=== PATIENT | female | born 1960 | race Caucasian/White ===

== ENCOUNTER 2023-09-03 14:23 | Observation (INO) | payer SELFPAY ==
[2023-09-03] MEDS ORDERED: AMLODIPINE 10 MG TAB ONE (15:01)
[2023-09-03] MEDS ORDERED: cloNIDine HCL 0.1 MG TAB ONE (15:01)
[2023-09-03 15:25] LABS: Absolute Lymphocytes (CBC) 2.9 K/uL (0.7-4.9); Hematocrit 42.1 % (36.0-45.0); Lymphocytes % 34.2 % (15.3-44.8); MCV 86.3 fL (80-100); MPV 8.7 fL (7.6-11.3); Platelets 283 thou/uL (152-406); RBC Red Blood Cell Count 4.88 M/uL (3.86-4.86)
[2023-09-03 15:31] LABS: Protime INR 1.07
[2023-09-03 15:51] LABS: Albumin 3.5 g/dL (3.4-5.0); Bilirubin Direct 0.1 mg/dL (0-0.2); Bilirubin Indirect, Calculated 0.2 mg/dL (0.2-0.8); Bilirubin Total 0.3 mg/dL (0.2-1.0); Magnesium 2.1 mg/dL (1.6-2.4); Potassium 3.5 mEq/L (3.5-5.1); Protein, Total 7.6 g/dL (6.4-8.2)
[2023-09-03 15:56] LABS: Troponin High Sensitivity 85.2 pg/mL (<58.9)
--- NOTE | 2023-09-03 15:56 | RAD REPORT ---
EXAM DESCRIPTION: Dilant Single View09/03/2023 3:02 pm CLINICAL HISTORY: Chest pain;SOB COMPARISON: CHEST PA AND LAT 2 VIEW dated 11/07/2009 TECHNIQUE: Portable AP view of the chest. FINDINGS: The lungs are clear. No pneumothorax or effusion. The cardiomediastinal contours are unre markable. IMPRESSION: No acute cardiopulmonary process.
--- NOTE | 2023-09-03 16:01 | RAD REPORT ---
EXAM DESCRIPTION: CT - Head Brain Wo Cont - 09/03/2023 2:55 pm CLINICAL HISTORY: DIZZINESS COMPARISON: No comparisons TECHNIQUE: Noncontrast head CT images were obtained without IV contrast. Multiplanar reformats were generated and reviewed. All CT scans are performed using dose optimization technique as appropriate and may include automated exposure control or mA/KV adjustment according to patient size. FINDINGS: No intracranial hemorrhage, mass, or edema. Midline structures are unremarkable. Normal ventricular caliber for age. Ray-white matter differentiation is preserved, without evidence of acute infarct. No abnormal extra- axial fluid collections. Mastoid air cells and visualized portions of the paranasal sinuses are clear. No acute bony findings. IMPRESSION: No evidence of an acute intracranial process.
[2023-09-03 16:39] LABS: Urine Bacteria None Seen /HPF (<20); Urine Bilirubin NEGATIVE (Negative); Urine Blood Negative (Negative); Urine Clarity Clear (Clear); Urine Color Light-Yellow (Yellow); Urine Glucose NEGATIVE (Negative); Urine Protein NEGATIVE (Negative); Urine RBC <5 /HPF (None Seen); Urine Urobilinogen Normal (Normal)
--- NOTE | 2023-09-03 18:14 | RAD REPORT ---
EXAM DESCRIPTION: CT - Angio Aorta For Dissection - 09/03/2023 5:30 pm CLINICAL HISTORY: chest pain COMPARISON: No comparisons TECHNIQUE: Thin axial CT images of the chest, abdomen, and pelvis were obtained during administratio n of iodinated contrast intravenously. Sagittal and coronal reconstructions as well as maximal intens ity projection reconstruction were generated and reviewed per an aortic angiography protocol. All CT scans are performed using dose optimization technique as appropriate and may include automated exposure control or mA/KV adjustment according to patient size. FINDINGS: Aorta is normal in diameter with no dissection or other acute aortic findings. Reconstruct ion images show no significant findings. Pulmonary arteries are normal as well. No mass or infiltrate in the lung parenchyma. No pleural thickening, pleural effusion or pneumothorax . No abnormal mediastinal or hilar mass or lymphadenopathy seen. No chest wall mass or abnormal axillar y lymphadenopathy. Celiac, SMA and renal arteries show no suspicious findings. Colonic diverticulosis. Segmental apparen t wall thickening along the sigmoid colon, favored to relate to nondistention. Solid abdominal viscera and bowel show no other significant findings. No mass or abnormal lymphadenop athy. IMPRESSION: No acute abnormalities on CT angiogram of the aorta. Colonic diverticulosis. Segmental apparent wall thickening along the sigmoid colon, favored to relate to nondistention.
[2023-09-03] MEDS ORDERED: ASPIRIN 81 MG CHEWABLE TABLET ONE (18:45)
[2023-09-03] MEDS ORDERED: ENOXAPARIN 60 MG/0.6 ML SQ ONE (18:45)
[2023-09-03] MEDS ORDERED: HYDRALAZINE HCL 20 MG/ML VIAL ONE (18:45)
--- NOTE | 2023-09-03 18:49 | EDPHYS ---
Physician Documentation [facility] Name: Catalina Franco Age: 62 yrs Sex: Female : 1960 Arrival Date: 09/03/2023 Time: 14:23 Bed 2 Private MD: ED Physician Ramana Dupont HPI: 09/03 14:40 This 62 yrs old Female presents to ER via Ambulatory with complaints of High Blood cp Pressure. 14:40 The patient has elevated blood pressure and discovered this at a physician's office, cp and sent to the emergency department for evaluation. 14:40 Onset: The symptoms/episode began/occurred 1 week(s) ago. cp 14:40 Associated signs and symptoms: Pertinent positives: chest pain, dizziness, shortness of cp breath with exertion. Severity of symptoms: At its worst the blood pressure was 230 mm Hg, in the emergency department the blood pressure is improved, 215 mm Hg. Historical: - Allergies: 14:35 No Known Allergies; ll1 - PMHx: 14:35 Hypertensive disorder; ll1 - Immunization history:: Adult Immunizations up to date. - Social history:: Smoking status: Patient denies any tobacco usage or history of. ROS: 14:45 Constitutional: Negative for body aches, chills, fever, poor PO intake, cp 14:45 Eyes: Negative for injury, pain, redness, and discharge, cp 14:45 ENT: Negative for drainage from ear(s), ear pain, sore throat, difficulty swallowing, difficulty handling secretions, 14:45 Cardiovascular: Positive for chest pain, Negative for edema, palpitations, 14:45 Respiratory: Positive for shortness of breath, on exertion. Negative for cough, wheezing, 14:45 Abdomen/GI: Negative for abdominal pain, vomiting, diarrhea, constipation, anorexia, 14:45 Back: Negative for pain at rest, pain with movement, 14:45 Neuro: Negative for altered mental status, headache, numbness, syncope, weakness, 14:45 All other systems are negative, Exam: 14:50 Constitutional: The patient appears in no acute distress, alert, awake, cp non-diaphoretic, non-toxic, well developed, well nourished, 14:50 Head/Face: Normocephalic, atraumatic. cp 14:50 Eyes: Periorbital structures: appear normal, Pupils: equal, round, and reactive to light and accomodation, Extraocular movements: intact throughout, Conjunctiva: normal, no exudate, no injection, Sclera: no appreciated abnormality, Lids and lashes: appear normal, bilaterally, 14:50 ENT: External ear(s): are unremarkable, Nose: is normal, Mouth: Lips: moist, Oral mucosa: pink and intact, moist, Posterior pharynx: Airway: no evidence of obstruction, patent, 14:50 Neck: ROM/movement: is normal, is supple, without pain, no range of motions limitations, no meningismus, no nuchal rigidity, 14:50 Chest/axilla: Inspection: normal, Palpation: is normal, no crepitus, no tenderness, 14:50 Cardiovascular: Rate: normal, Rhythm: regular, Edema: is not appreciated, JVD: is not appreciated, 14:50 Respiratory: the patient does not display signs of respiratory distress, Respirations: normal, no use of accessory muscles, no retractions, labored breathing, is not present, Breath sounds: are clear throughout, no decreased breath sounds, no stridor, no wheezing, 14:50 Abdomen/GI: Inspection: abdomen appears normal, Palpation: abdomen is soft and non-tender, in all quadrants, 14:50 Back: pain, is absent, ROM is normal, 14:50 Neuro: Orientation: to person, place \T\ time. Mentation: is normal, Motor: moves all fours, strength is normal, Sensation: is normal, 15:22 ECG was reviewed by the Attending Physician. cp Vital Signs: 14:35 BP 215 / 105; Pulse 63; Resp 17; Temp 97.8; Pulse Ox 100% ; Weight 58.51 kg; Height 5 ll1 ft. 0 in. ; Pain 0/10; 14:57 BP 212 / 88; Pulse 56; Resp 17; Pulse Ox 99% on R/A; rs5 15:30 BP 217 / 82; Pulse 55; Resp 14; Pulse Ox 97% on R/A; ld1 16:00 BP 173 / 89; Pulse 52; Resp 12; Pulse Ox 98% on R/A; ld1 16:01 BP 173 / 89; Pulse 53; Resp 17; Pulse Ox 99% on R/A; rs5 16:30 BP 162 / 80; Pulse 52; Resp 13; Pulse Ox 97% on R/A; ld1 17:00 BP 152 / 86; Pulse 52; Resp 17; Pulse Ox 97% on R/A; ld1 17:43 BP 197 / 80; Pulse 56; Resp 20; Pulse Ox 98% on R/A; ld1 18:53 BP 171 / 84; Pulse 56; Resp 18; Pulse Ox 99% on R/A; rs5 19:32 BP 161 / 73; Pulse 52; Resp 19; Pulse Ox 97% on R/A; Pain 0/10; tm6 20:18 BP 157 / 78; Pulse 55; Resp 19; Pulse Ox 98% on R/A; Pain 0/10; tm6 14:35 Body Mass Index 25.19 (58.51 kg, 152.4 cm) ll1 14:35 Pain Scale: Adult ll1 19:32 Pain Scale: Adult tm6 20:18 Pain Scale: Adult tm6 MDM: 14:28 Patient medically screened. 15:00 Differential diagnosis: hypertensive crisis, Malignant HTN, CVA, intracerebral cp hemorrhage, acute MA. 18:31 Management of patient was discussed with the following: Data Communications Technician: DR Oquendo, circuit rider, will consult and patient can be admitted to services of hospitalist. Care significantly affected by the following chronic conditions: Hypertension. 18:35 Data reviewed: vital signs, nurses notes, lab test result(s), EKG, radiologic studies, cp CT scan, plain films, and as a result, I will admit patient. 18:35 I considered the following discharge prescriptions or medication management in the emergency department Medications were administered in the Emergency Department. See MAR. Independent interpretation of the following test(s) in the Emergency Department EKG: See my EKG interpretation above. 09/03 14:36 Order name: Basic Metabolic Panel; Complete Time: 16:08 09/03 16:09 Interpretation: Normal except: GLUC 162; BUN 19; GFR 61. 09/03 14:36 Order name: CBC with Diff; Complete Time: 16:08 09/03 16:41 Interpretation: Normal except: RBC 4.88. 09/03 14:36 Order name: D-Dimer; Complete Time: 16:08 09/03 16:42 Interpretation: Abnormal: D-DIMER 616. 09/03 14:36 Order name: LFT's; Complete Time: 16:08 09/03 14:36 Order name: Magnesium; Complete Time: 16:08 09/03 14:36 Order name: NT PRO-BNP; Complete Time: 16:08 09/03 14:36 Order name: PT-INR; Complete Time: 16:08 09/03 14:36 Order name: Troponin HS; Complete Time: 16:08 09/03 16:42 Interpretation: Abnormal: Troponin HS 85.2. cp 09/03 14:37 Order name: Urinalysis W/Microscopic; Complete Time: 16:41 09/03 16:41 Interpretation: Reviewed. 09/03 19:16 Order name: Troponin High Sensitivity [facility] 09/03 19:26 Order name: Hemoglobin A1c [facility] 09/03 19:26 Order name: Thyroid Stimulating Hormone [facility] 09/03 14:36 Order name: XRAY Chest (1 view); Complete Time: 16:08 09/03 14:39 Order name: CT Head Brain wo Cont; Complete Time: 16:08 09/03 16:10 Order name: CT Aorta for Dissection; Complete Time: 18:16 09/03 14:36 Order name: EKG; Complete Time: 14:37 09/03 19:10 Order name: CONS Physician Consult [facility] 09/03 19:13 Order name: EKG Electrocardiogram [facility] 09/03 14:36 Order name: Cardiac monitoring; Complete Time: 15:23 09/03 14:36 Order name: EKG - Nurse/Tech; Complete Time: 15:23 09/03 14:36 Order name: IV Saline Lock; Complete Time: 15:23 09/03 14:36 Order name: Labs collected and sent; Complete Time: 15:23 09/03 14:36 Order name: O2 Per Protocol; Complete Time: 15:13 09/03 14:36 Order name: O2 Sat Monitoring; Complete Time: 15:13 cp EC:22 Rate is 49 beats/min. Rhythm is regular. [place] interval is normal. QRS interval is normal. cp QT interval is normal. T waves are Inverted in lead aVR. Interpreted by me. Reviewed by me. Administered Medications: 15:05 Drug: cloNIDine PO 0.2 mg PO once Route: PO; rs5 15:05 Drug: amLODIPine PO 10 mg PO once Route: PO; rs5 18:40 Drug: Aspirin PO Chewable Tablet 324 mg PO once; 81 mg tablets x 4 Route: PO; rs5 18:40 Drug: Enoxaparin Sub-Q 1 mg/kg Sub-Q once Route: Sub-Q; Site: left lower abdomen; rs5 18:59 Not Given (Physician Discretion): [id number] mg IVP once cp Disposition Summary: 09/03/23 18:49 Hospitalization Ordered Notes: Hospitalization Status: Inpatient Admission cp Provider: Calvin Alford cp Condition: Stable cp Problem: new cp Symptoms: have improved cp Bed/Room Type: Standard cp Location: Telemetry/MedSurg (observation)(09/03/23 19:38) rv1 Room Assignment: [facility](09/03/23 19:38) rv1 Diagnosis - Angina pectoris, unspecified cp - Hypertensive heart disease without heart failure cp Forms: - Medication Reconciliation Form cp - SBAR form cp - Leadership Thank You Letter cp Signatures: Dispatcher [employer] EDMS Erick Shirley PA PA cp Grace Vasquez RN RN Linda Morales RN RN ll1 Lindy Hammonds rv1 Wilfred Rodriguez RN RN rs5 Corrections: (The following items were deleted from the chart) 19:13 18:49 cp rv1 19:25 18:49 Telemetry/MedSurg (Inpatient) cp cg 19:25 19:13 428 rv1 cg 19:25 19:25 cg cg 19:38 19:25 [facility] ER HOLD cg rv1 19:38 19:25 ERHOLD- cg rv1 09/04 19:19 09/02 14:40 This 62 yrs old Female presents to ER via Ambulatory with complaints of cp High Blood Pressure. cp
--- NOTE | 2023-09-03 18:49 | ER ---
Nurse's Notes [facility] Name: Catalina Franco Age: 62 yrs Sex: Female : 1960 Arrival Date: 09/03/2023 Time: 14:23 Bed 2 Private MD: Diagnosis: Angina pectoris, unspecified;Hypertensive heart disease without heart failure Presentation: 09/03 14:35 Chief complaint: Patient states: Sent by PCP for elevated BP. 230's systolic. Int. CP, ll1 none now. + SOB with exertion. Coronavirus screen: Client denies travel out of the [place] in the last 14 days. At this time, the client does not indicate any symptoms associated with coronavirus-19. Ebola Screen: Patient denies travel to an Ebola-affected area in the 21 days before illness onset. Initial Sepsis Screen: Does the patient meet any 2 criteria? No. Patient's initial sepsis screen is negative. Does the patient have a suspected source of infection? No. Patient's initial sepsis screen is negative. Risk Assessment: Do you want to hurt yourself or someone else? Patient reports no desire to harm self or others. Onset of symptoms was August 20, 2023. 14:35 Method Of Arrival: Ambulatory ll1 14:35 Acuity: GRETA 2 ll1 Historical: - Allergies: 14:35 No Known Allergies; ll1 - PMHx: 14:35 Hypertensive disorder; ll1 - Immunization history:: Adult Immunizations up to date. - Social history:: Smoking status: Patient denies any tobacco usage or history of. Screenin:30 [facility] ED Fall Risk Assessment (Adult) History of falling in the last 3 months, rs5 including since admission No falls in past 3 months (0 pts) Confusion or Disorientation No (0 pts) Intoxicated or Sedated No (0 pts) Impaired Gait No (0 pts) Mobility Assist Device Used No (0 pt) Altered Elimination No (0 pt) Score/Fall Risk Level 0 - 2 = Low Risk Oriented to surroundings, Maintained a safe environment. [facility] ED Fall Risk Assessment (Adult) History of falling in the last 3 months, including since admission. Abuse screen: Denies threats or abuse. Nutritional screening: No deficits noted. Tuberculosis screening: No symptoms or risk factors identified. Assessment: 14:30 General: Appears in no apparent distress. comfortable, Behavior is calm, cooperative. rs5 Pain: Denies pain. Neuro: Level of Consciousness is awake, alert, obeys commands, Oriented to person, place, time, situation, Reports dizziness. Cardiovascular: Patient's skin is warm and dry. Rhythm is regular. Respiratory: Reports shortness of breath Respiratory effort is even, unlabored, Respiratory pattern is regular, symmetrical. GI: Abdomen is flat, non-distended. : No signs and/or symptoms were reported regarding the genitourinary system. EENT: No signs and/or symptoms were reported regarding the EENT system. Derm: Skin is intact, Skin is pink, warm \T\ dry. 14:30 Musculoskeletal: Range of motion: intact in all extremities. rs5 14:30 Reassessment: provider notified of elevated bp. rs5 15:35 Reassessment: No changes from previously documented assessment. rs5 16:42 Reassessment: Patient and/or family updated on plan of care and expected duration. Pain rs5 level reassessed. Patient is alert, oriented x 3, equal unlabored respirations, skin warm/dry/pink. Patient denies pain at this time. 16:42 Cardiovascular: Rhythm is regular. rs5 17:42 Reassessment: No changes from previously documented assessment. rs5 17:42 Reassessment: provider notified of elevated BP. rs5 17:52 Reassessment: provider notified of elevated bp . rs5 18:30 Reassessment: Patient and/or family updated on plan of care and expected duration. Pain rs5 level reassessed. Patient is alert, oriented x 3, equal unlabored respirations, skin warm/dry/pink. 20:01 Reassessment: report attempted. tm6 20:18 Reassessment: report attempted. tm6 20:42 Reassessment: report attempted. tm6 Vital Signs: 14:35 BP 215 / 105; Pulse 63; Resp 17; Temp 97.8; Pulse Ox 100% ; Weight 58.51 kg; Height 5 ll1 ft. 0 in. ; Pain 0/10; 14:57 BP 212 / 88; Pulse 56; Resp 17; Pulse Ox 99% on R/A; rs5 15:30 BP 217 / 82; Pulse 55; Resp 14; Pulse Ox 97% on R/A; ld1 16:00 BP 173 / 89; Pulse 52; Resp 12; Pulse Ox 98% on R/A; ld1 16:01 BP 173 / 89; Pulse 53; Resp 17; Pulse Ox 99% on R/A; rs5 16:30 BP 162 / 80; Pulse 52; Resp 13; Pulse Ox 97% on R/A; ld1 17:00 BP 152 / 86; Pulse 52; Resp 17; Pulse Ox 97% on R/A; ld1 17:43 BP 197 / 80; Pulse 56; Resp 20; Pulse Ox 98% on R/A; ld1 18:53 BP 171 / 84; Pulse 56; Resp 18; Pulse Ox 99% on R/A; rs5 19:32 BP 161 / 73; Pulse 52; Resp 19; Pulse Ox 97% on R/A; Pain 0/10; tm6 20:18 BP 157 / 78; Pulse 55; Resp 19; Pulse Ox 98% on R/A; Pain 0/10; tm6 14:35 Body Mass Index 25.19 (58.51 kg, 152.4 cm) ll1 14:35 Pain Scale: Adult ll1 19:32 Pain Scale: Adult tm6 20:18 Pain Scale: Adult tm6 ED Course: 14:24 Patient arrived in ED. rg4 14:26 Erick Shirley PA is PHCP. cp 14:26 Ramana Dupont MD is Attending Physician. cp 14:35 Arm band placed on. ll1 14:35 Patient has correct armband on for positive identification. Bed in low position. Call rs5 light in reach. Side rails up X2. 14:37 Triage completed. ll1 14:40 Inserted saline lock: 20 gauge in right antecubital area, using aseptic technique. rs5 Blood collected. 14:56 CT Head Brain wo Cont In Process Unspecified. EDMS 15:03 XRAY Chest (1 view) In Process Unspecified. EDMS 17:28 Wilfred Rodriguez, HUNTER is Primary Nurse. rs5 17:31 CT Aorta for Dissection In Process Unspecified. EDMS 17:43 No provider procedures requiring assistance completed. rs5 18:47 Calvin Alford MD is Hospitalizing Provider. cp 20:17 Provided Education on: need for admit. tm6 21:11 Patient admitted, IV remains in place. tm6 Administered Medications: 15:05 Drug: cloNIDine PO 0.2 mg PO once Route: PO; rs5 15:05 Drug: amLODIPine PO 10 mg PO once Route: PO; rs5 18:40 Drug: Aspirin PO Chewable Tablet 324 mg PO once; 81 mg tablets x 4 Route: PO; rs5 18:40 Drug: Enoxaparin Sub-Q 1 mg/kg Sub-Q once Route: Sub-Q; Site: left lower abdomen; rs5 18:59 Not Given (Physician Discretion): [id number] mg IVP once cp Medication: 15:05 VIS not applicable for this client. rs5 Outcome: 18:49 Decision to Hospitalize by Provider. cp 21:11 Admitted to tm6 21:11 Condition: stable 21:11 Admitted to Med/surg accompanied by tech, room 202, with chart, Report called to Michael jefferson RN 21:11 Instructed on the need for admit, 21:12 Patient left the ED. tm6 Signatures: Dispatcher [employer] EDMS Erick Shirley PA PA cp Garcia, Rubi rg4 Linda Morales, RN RN ll1 Vandana Bolden RN RN ld1 Wilfred Rodriguez RN RN rs5 Julianna Nagy RN RN tm6 Corrections: (The following items were deleted from the chart) 17:52 15:49 BP 217 / 82; Pulse 56bpm; Resp 15bpm; Pulse Ox 98% RA; ld1 rs5 17:52 17:43 BP 197 / 80; Pulse 61bpm; Resp 18bpm; Pulse Ox 99% RA; rs5 rs5 17:52 16:42 Reassessment: provider notified of elevated bp . rs5 rs5
[2023-09-03] MEDS ORDERED: cloNIDine HCL 0.1 MG TAB PO PRN (19:13)
--- NOTE | 2023-09-03 19:18 | P.HP ---
Certification for Inpatient Patient admitted to: Observation With expected LOS: <2 Midnights Practitioner: I am a practitioner with admitting privileges, knowledge of patient current condition, hospital course, and medical plan of care. Services: Services provided to patient in accordance with Admission requirements found in Title 42 Section 412.3 of the Code of Federal Regulations Patient History Date of Service: 09/03/23 Reason for admission: Elevated blood pressure non-STEMI History of Present Illness: Patient is 62 years of age has been having problems for the past week admitted to the hospital complaining of feeling dizzy very stressed out looking for her mother. Also has some weakness shortness of breath and it appeared in the hospital with a systolic over 220. Patient does take valsartan and has been compliant with her medication denies any chest pain. Shortness of breath right now patient has a history of sinus bradycardia Allergies No Known Allergies Allergy (Unverified 09/03/23 21:12) - Past Medical/Surgical History -: Hypertension Past Surgical History: Patient denies surgical history - Social History Smoking Status: Never smoker Review of Systems 10-point ROS is otherwise unremarkable Physical Examination - Vital Signs Blood Pressure: 212/88 Pulse: 56 Respirations: 17 Pulse Ox (%): 99 - Physical Exam General: Alert, In no apparent distress, Oriented x3 HEENT: Atraumatic Neck: Supple Respiratory: Clear to auscultation bilaterally Cardiovascular: Normal pulses, Regular rate/rhythm Gastrointestinal: Normal bowel sounds, Soft and benign Musculoskeletal: No clubbing, No swelling Integumentary: No rashes, No breakdown Neurological: Normal speech, Normal strength at 5/5 x4 extr, Cranial nerves 3-12 intact - Studies Laboratory Data (last 24 hrs) 09/03/23 09/03/23 09/03/23 15:10 15:10 15:10 WBC 8.40 Hgb 14.6 Hct 42.1 Plt Count 283 PT 11.7 INR 1.07 Sodium 138 Potassium 3.5 BUN 19 H Creatinine 1.02 Glucose 162 H Magnesium 2.1 Total Bilirubin 0.3 AST 20 ALT 26 Alkaline Phosphatase 88 Assessment and Plan - Problems (Diagnosis) (1) Non-STEMI (non-ST elevated myocardial infarction) Current Visit: Yes Status: Acute Plan: Patient is 62 years of age admitted with weakness dizziness shortness of breath. Her chest x-ray is negative CT for dissection is also negative CT of the head is negative pertinent abnormalities include an elevated troponin of 85.2 which is normal CBC normal chemistries mildly elevated dimer plan to admit the patient to the hospital for observation anticoagulate aspirin blood pressure controlled with valsartan and hydrochlorothiazide fully anticoagulate the patient continue with aspirin repeat troponin EKGs cardiology consult (2) Sinus bradycardia Current Visit: Yes Status: Acute Plan: Patient has a history of sinus bradycardia (3) Hyperglycemia Current Visit: Yes Status: Acute Plan: Check A1c, - Advance Directives Does patient have a Living Will: No Does patient have a Durable POA for Healthcare: No
[2023-09-03] MEDS: hydroCHLOROthiazide 12.5 MG CAP PO SCH (21:39)
[2023-09-03 22:08] VITALS: O2SAT 100; BMI 25.2
[2023-09-04] MEDS: ENOXAPARIN 60 MG/0.6 ML SQ SCH (05:47)
[2023-09-04] MEDS: ASPIRIN EC 81 MG TAB PO SCH (09:39)
[2023-09-04] MEDS: VALSARTAN 160 MG TAB PO SCH (09:39)
--- NOTE | 2023-09-04 10:56 | P.CNS ---
Date of Consult: 09/04/23 Chief Complaint: Elevated blood pressure non-STEMI History of Present Illness: Patient with PMH of HTN, presented with stress over the last week, she has history of high BP that has been well controlled with Valsartan, she also report one episode of chest pain that lasted few seconds felt like pressure, no family history of CAD. Allergies No Known Allergies Allergy (Unverified 09/03/23 21:12) - Past Medical/Surgical History Diabetic: No -: Hypertension -: ectopic -: appendectomy -: - Social History Alcohol use: No CD- Drugs: No Caffeine use: No Place of Residence: Home Review of Systems 10-point ROS is otherwise unremarkable Physical Examination Temp Pulse Resp BP Pulse Ox 97.1 F 50 16 130/72 99 09/04/23 04:00 09/04/23 04:00 09/04/23 04:00 09/04/23 04:00 09/04/23 04:00 General: Alert, Oriented x3 HEENT: Atraumatic Neck: Supple Respiratory: Clear to auscultation bilaterally Cardiovascular: No edema, Normal S1 S2 Gastrointestinal: Normal bowel sounds Laboratory Data (last 24 hrs) 09/03/23 09/03/23 09/03/23 15:10 15:10 15:10 WBC 8.40 Hgb 14.6 Hct 42.1 Plt Count 283 PT 11.7 INR 1.07 Sodium 138 Potassium 3.5 BUN 19 H Creatinine 1.02 Glucose 162 H Magnesium 2.1 Total Bilirubin 0.3 AST 20 ALT 26 Alkaline Phosphatase 88 - Problems (1) Hypertension Current Visit: Yes Status: Acute Plan: Continue Valsartan and HCTZ. Continue to monitor BP (2) Non-STEMI (non-ST elevated myocardial infarction) Current Visit: Yes Status: Acute Plan: Troponins are mildly elevated with no significant delta which can be secondary to hypertensive emergency, although patient had one time chest pain. Continue ASA 81 mg daily if patient still inpatient then plan for echo and stress test wednesday, if patient is ready for discharge then plan to do it as outpatient
--- NOTE | 2023-09-04 16:29 | P.DS ---
Admission Date: 09/03/23 Discharge Date: 09/04/23 Disposition: ROUTINE DISCHARGE Discharge Condition: FAIR Reason for Admission: Elevated blood pressure non-STEMI - Problems (1) Hypertensive urgency Current Visit: Yes Status: Acute (2) Non-STEMI (non-ST elevated myocardial infarction) Current Visit: Yes Status: Acute (3) Sinus bradycardia Current Visit: Yes Status: Acute (4) Type 2 diabetes mellitus Current Visit: Yes Status: Acute Brief History of Present Illness: 62-year-old woman with a history of hypertension and sinus bradycardia presented to the emergency department with a complaint of feeling dizzy and stressed out taking care of her mother. She noted severely elevated blood pressure and was complaining of shortness of breath. She denied any chest pain. Her systolic blood pressure in the ED was elevated to 220. Patient does take valsartan and reported she has been compliant with her medication. Her initial troponin was mildly elevated to 85.2, which trended up to 118.9. CT dissection was unremarkable. EKG did not show any acute ischemic changes. Patient was hospitalized for further management. Hospital Course: Initial troponin in the ED was mildly elevated, trended up slightly and then trended down. Patient briefly treated with full dose Lovenox She was placed on her home antihypertensives plus hydrochlorothiazide and clonidine. Her blood pressure improved rapidly to normal level. Patient was seen by cardiology Dr. Jaime Oquendo who recommended follow-up in the cardiology office as outpatient for echocardiogram and stress test. Elevated troponin deemed secondary to demand ischemia. Patient is informed to call [facility] cardiology office for an appointment. Patient is prescribed aspirin and Lipitor for possible coronary artery disease. Her blood pressure medication valsartan has been resumed on discharge. No changes made in her home blood pressure medications. Hemoglobin A1c is 7.4. Patient reports history of type 2 diabetes which was diet-controlled. Diet modification recommended prior to initiating antidiabetics. Vital Signs/Physical Exam: Temp Pulse Resp BP Pulse Ox 98.0 F 56 16 134/70 99 09/04/23 12:00 09/04/23 12:00 09/04/23 12:00 09/04/23 12:00 09/04/23 12:00 General: Alert, In no apparent distress, Oriented x3 HEENT: Mucous membr. moist/pink Neck: JVD not distended Respiratory: Clear to auscultation bilaterally, Normal air movement Cardiovascular: No edema, Regular rate/rhythm, Normal S1 S2 Gastrointestinal: Normal bowel sounds, Soft and benign, Non-distended, No tenderness Musculoskeletal: No swelling Integumentary: No rashes, No cyanosis Neurological: Normal speech, Normal strength at 5/5 x4 extr Laboratory Data at Discharge: WBC 8.40 thou/uL (4.3-10.9) 09/03/23 15:10 Hgb 14.6 g/dL (12.0-15.0) 09/03/23 15:10 Hct 42.1 % (36.0-45.0) 09/03/23 15:10 Plt Count 283 thou/uL (152-406) 09/03/23 15:10 PT 11.7 SECONDS (9.5-12.5) 09/03/23 15:10 INR 1.07 09/03/23 15:10 Sodium 138 mEq/L (136-145) 09/03/23 15:10 Potassium 3.5 mEq/L (3.5-5.1) 09/03/23 15:10 BUN 19 mg/dL (7-18) H 09/03/23 15:10 Creatinine 1.02 mg/dL (0.55-1.02) 09/03/23 15:10 Glucose 162 mg/dL (74-106) H 09/03/23 15:10 Magnesium 2.1 mg/dL (1.6-2.4) 09/03/23 15:10 Total Bilirubin 0.3 mg/dL (0.2-1.0) 09/03/23 15:10 AST 20 U/L (15-37) 09/03/23 15:10 ALT 26 U/L (13-56) 09/03/23 15:10 Alkaline Phosphatase 88 U/L (45-117) 09/03/23 15:10 Home Medications: Aspirin [Aspirin EC] 81 mg PO DAILY #30 tab 09/04/23 Atorvastatin Calcium [Lipitor] 40 mg PO BEDTIME #30 tab 09/04/23 Valsartan 320 mg PO DAILY 09/04/23 New Medications: Aspirin [Aspirin EC] 81 mg PO DAILY #30 tab Atorvastatin Calcium [Lipitor] 40 mg PO BEDTIME #30 tab Physician Discharge Instructions: Patient was hospitalized due to complain of high blood. Patient systolic Blood pressure was in the 200s on arrival. She reported being stressed out. Initial troponin in the ED was mildly elevated, trended up slightly ending trended down. Patient placed on her home antihypertensives plus hydrochlorothiazide and clonidine. Her blood pressure improved rapidly to normal level. Patient was seen by cardiology Dr. Jaime Oquendo who recommended follow-up in the cardiology office as outpatient for echocardiogram and stress test. Patient is informed to call [facility] cardiology office for an appointment. Patient is prescribed aspirin and Lipitor for possible coronary artery disease. Her blood pressure medication valsartan has been resumed on discharge. No changes made in her blood pressure medications. Patient's hemoglobin A1c is 7.4 and suggest she has diabetes mellitus type 2. At this point diet modification with diabetic diet recommended before initiation of antidiabetic medications. Diet: ADA Activity: Ad johnna Followup: Jaime Oquendo MD [ACTIVE - CAN ADMIT] - NONE,NONE [Primary Care Provider] - Vicente Laguna MD [ACTIVE - CAN ADMIT] - (Please call next week wednesday09/06/2023 for arrangement for stress test and echocardiogram.) Time spent managing pt's care (in minutes): 28
[2023-09-04 20:56] VITALS: BP 148/76; TEMP 98.4
[2023-09-04] MEDS ORDERED: ATORVASTATIN 40 MG TAB PO SCH (21:00)
[2023-09-05] MEDS ORDERED: VALSARTAN 160 MG TAB PO SCH (09:00)
--- NOTE | 2023-09-06 14:34 | EKG ---
Test Date: 2023-09-04 Test Time: 06:15:15 Salary And Wage Administrator: VERONICA MEASUREMENT RESULTS: Intervals: Rate: 53 IA: 164 QRSD: 80 QT: 504 QTc: 472 [place]: P: 62 IA: 164 QRS: 24 T: 67 INTERPRETIVE STATEMENTS: Sinus bradycardia with occasional premature ventricular complexes Septal infarct, age undetermined Abnormal ECG Compared to ECG 09/03/2023 15:16:52 Ventricular premature complex(es) now present Myocardial infarct finding now present Electronically Signed On 09-06-23 14:28:39 EMPLOYEE BENEFITS SPECIALIST by Vicente Laguna
--- NOTE | 2023-09-06 14:37 | EKG ---
Test Date: 2023-09-03 Test Time: 15:16:52 Internet Retailer: DAKOTA MEASUREMENT RESULTS: Intervals: Rate: 49 NM: 134 QRSD: 82 QT: 458 QTc: 413 [place]: P: 24 NM: 134 QRS: 10 T: 58 INTERPRETIVE STATEMENTS: Marked sinus bradycardia Abnormal ECG Compared to ECG 04/01/2015 08:38:38 No significant changes Electronically Signed On 09-06-23 14:29:32 [employer] PARAPROFESSIONAL by Vicente Laguna
== END 2023-09-04 20:30 | disposition home or self-care (01) ==
LOC: ER 14:23 → ERHOLD 19:07 → 2ND 19:59
PROVIDERS: ADMIT Internal Medicine Sleep Medicine; ATTEND Internal Medicine
DX: I21.4 Non-ST elevation (NSTEMI) myocardial infarction (principal); I16.0 Hypertensive urgency; R00.1 Bradycardia, unspecified; I10 Essential (primary) hypertension; E11.65 Type 2 diabetes mellitus with hyperglycemia; Z63.6 Dependent relative needing care at home
CPT/HCPCS: 36415; 70450; 71045; 71275; 74175; 80048; 80076; 81001; 82947; 83036; 83735; 83880; 84443; 84484; 85025; 85379; 85610; 93005; G0378; J0360; J1650; Q9967